=== PATIENT | male | born 1960 | race Caucasian/White ===

== ENCOUNTER → 2021-12-08 13:10 | Outpatient (CLI) | payer OTHER, SELFPAY ==
--- NOTE | ~2021-12-08 | XR_ITS ---
EXAMINATION: XR chest 2V 12/08/2021 13:27 INDICATION: Cough PROCEDURE: 2 view chest COMPARISON: No prior studies for comparison FINDINGS: The lungs are clear. The cardiomediastinal silhouette is within normal limits. There are no pleural effusions. There is no pneumothorax suspected. IMPRESSION: 1: NO ACUTE CARDIOPULMONARY DISEASE. Reviewed, dictated and finalized at location A.
== END ==
PROVIDERS: PCP Emergency Medicine; Visit Provider Emergency Medicine
DX: R05.9 Cough, unspecified (principal)
CPT/HCPCS: 71046

== ENCOUNTER → 2024-08-28 14:10 | Outpatient (CLI) | payer OTHER, SELFPAY ==
--- NOTE | ~2024-08-28 | XR_ITS ---
XR knee LT min 4V Ordering provider: Escobar Garcia MD History: . medial knee pain, NKI . Comparison: None. FINDINGS: BONES: No acute fracture or dislocation. JOINT SPACES: narrowing of the lateral compartment. SOFT TISSUES: Normal. IMPRESSION: No acute osseous abnormality left knee. Severe osteoarthritic changes. Reviewed, dictated and finalized at location A. [facility]
== END ==
PROVIDERS: PCP Emergency Medicine; Visit Provider Emergency Medicine
DX: M17.12 Unilateral primary osteoarthritis, left knee (principal)
CPT/HCPCS: 73564